=== PATIENT | male | born 1955 | race Caucasian/White ===

== ENCOUNTER 2023-02-03 18:41 | Inpatient (IN) ==
[2023-02-03] MEDS ORDERED: IOPAMIDOL 100 ML BOTTLE IV ONE (18:42)
[2023-02-03] MEDS ORDERED: 0.9 % SODIUM CHLORIDE 1,000 ML IV ONE (19:01)
[2023-02-03 19:16] LABS: POC Calcium, Ionized 1.22 (1.16-1.32); POC Creatinine 0.8 (0.6-1.2); POC Potassium 4.4 (3.3-5.1)
[2023-02-03] MEDS ORDERED: PIPERACILLIN SODIUM/TAZOBACTAM 3.375 GM in DEXTROSE 5% IN WATER 50 ML IV ONE (19:38)
[2023-02-03] MEDS ORDERED: ONDANSETRON 4 MG/2 ML VIAL IV ONE (19:55)
[2023-02-03 20:00] LABS: Basophils # (Auto) 0.02 K/mcL (0.00-0.30); Basophils % (Auto) 0.1 % (0.0-2.0); Eosinophils # (Auto) 0.01 K/mcL (0.00-0.70); Eosinophils % (Auto) 0.1 % (0.0-7.0); Hematocrit 46.1 % (40.1-51.0); Hemoglobin 14.6 g/dL (13.7-17.5); Lymphocytes % (Auto) 11.8 % (15.5-49.0); Mean Cell Volume 85.1 fL (80.0-100.0); Mean Corpuscular HGB Conc 31.7 g/dL (31.0-36.0); Mean Platelet Volume 9.4 fL (8.8-12.5); Monocytes # (Auto) 0.85 K/mcL (0.10-0.90); Neutrophils % (Auto) 82.6 % (38.0-78.0); Platelet Count 360 K/mcL (140-440); RBC 5.42 M/mcL (4.63-6.08); Red Cell Distribution Width 14.9 % (11.5-14.5); WBC 16.9 K/mcL (4.5-11.0)
[2023-02-03] MEDS: HYDROmorphone 0.5 MG/0.5 ML SYRINGE IV PRN ×3 (20:02→23:24)
[2023-02-03 20:12] LABS: ALT/SGPT 31 U/L (<40); AST/SGOT 16 U/L (<40); Alkaline Phosphatase 79 U/L (39-117); Bilirubin,Direct < 0.2 mg/dL (0-0.3); Bilirubin,Total 0.7 mg/dL (0.1-1.0); Globulin 3.4 gm/dL (2.2-3.7)
[2023-02-03] MEDS ORDERED: ACETAMINOPHEN 325 MG TABLET PO PRN (20:19)
[2023-02-03] MEDS: PIPERACILLIN SODIUM/TAZOBACTAM 3.375 GM in DEXTROSE 5% IN WATER 50 ML IV SCH ×2 (20:42→20:45)
[2023-02-03] MEDS: 0.9 % SODIUM CHLORIDE 1,000 ML IV SCH ×2 (20:43→22:08)
[2023-02-03] MEDS ORDERED: ACETAMINOPHEN 1,000 MG/100 ML BAG IV ONE (23:20)
[2023-02-03] MEDS: ACETAMINOPHEN 1,000 MG/100 ML BAG IV SCH (23:23)
[2023-02-03] MEDS ORDERED: LORazepam 1 MG TABLET ONE (23:34)
[2023-02-03] MEDS: LORazepam 1 MG TABLET PO PRN (23:35)
[2023-02-04] MEDS ORDERED: ACETAMINOPHEN 1,000 MG/100 ML BAG IV ONE (04:17)
[2023-02-04] MEDS: ACETAMINOPHEN 1,000 MG/100 ML BAG IV SCH ×4 (04:18→23:52)
[2023-02-04] MEDS: PIPERACILLIN SODIUM/TAZOBACTAM 3.375 GM in DEXTROSE 5% IN WATER 50 ML IV SCH ×3 (05:16→21:56)
[2023-02-04] MEDS: HYDROmorphone 0.5 MG/0.5 ML SYRINGE IV PRN ×4 (05:20→22:05)
[2023-02-04 07:43] LABS: Basophils # (Auto) 0.05 K/mcL (0.00-0.30); Basophils % (Auto) 0.4 % (0.0-2.0); Eosinophils # (Auto) 0.15 K/mcL (0.00-0.70); Eosinophils % (Auto) 1.1 % (0.0-7.0); Hematocrit 38.4 % (40.1-51.0); Hemoglobin 11.9 g/dL (13.7-17.5); Lymphocytes # (Auto) 1.63 K/mcL (1.50-4.80); Lymphocytes % (Auto) 11.8 % (15.5-49.0); Mean Cell Volume 87.1 fL (80.0-100.0); Mean Platelet Volume 10.3 fL (8.8-12.5); Monocytes # (Auto) 0.71 K/mcL (0.10-0.90); Monocytes % (Auto) 5.1 % (1.0-12.0); Neutrophils % (Auto) 81.2 % (38.0-78.0); Platelet Count 256 K/mcL (140-440); RBC 4.41 M/mcL (4.63-6.08); Red Cell Distribution Width 15.3 % (11.5-14.5); WBC 13.8 K/mcL (4.5-11.0)
[2023-02-04] MEDS: LORazepam 1 MG TABLET PO PRN ×3 (08:34→21:57)
[2023-02-04] MEDS: 0.9 % SODIUM CHLORIDE 1,000 ML IV SCH ×3 (10:22→21:54)
[2023-02-04] MEDS: IPRATROPIUM/ALBUTEROL 3 ML AMPUL.NEB NEB SCH ×2 (13:06→18:13)
[2023-02-04] MEDS: KETOROLAC 15 MG/ML VIAL IV SCH ×2 (14:42→17:42)
[2023-02-04] MEDS: methylPREDNISolone SOD SUCC 125 MG/2 ML VIAL IV SCH (21:54)
[2023-02-05] MEDS: IPRATROPIUM/ALBUTEROL 3 ML AMPUL.NEB NEB SCH ×4 (00:11→19:32)
[2023-02-05] MEDS: KETOROLAC 15 MG/ML VIAL IV SCH ×5 (00:27→23:49)
[2023-02-05] MEDS: PIPERACILLIN SODIUM/TAZOBACTAM 3.375 GM in DEXTROSE 5% IN WATER 50 ML IV SCH ×3 (05:18→21:25)
[2023-02-05] MEDS: LORazepam 1 MG TABLET PO PRN ×2 (05:21→19:07)
[2023-02-05] MEDS: ACETAMINOPHEN 1,000 MG/100 ML BAG IV SCH ×4 (05:59→23:48)
[2023-02-05] MEDS: methylPREDNISolone SOD SUCC 125 MG/2 ML VIAL IV SCH ×2 (10:08→21:25)
[2023-02-05] MEDS: 0.9 % SODIUM CHLORIDE 1,000 ML IV SCH ×2 (10:09→15:31)
[2023-02-05] MEDS: HYDROmorphone 0.5 MG/0.5 ML SYRINGE IV PRN ×2 (11:50→21:25)
[2023-02-06] MEDS: IPRATROPIUM/ALBUTEROL 3 ML AMPUL.NEB NEB SCH ×4 (01:20→18:44)
[2023-02-06] MEDS: 0.9 % SODIUM CHLORIDE 1,000 ML IV SCH ×3 (04:00→17:38)
[2023-02-06] MEDS: PIPERACILLIN SODIUM/TAZOBACTAM 3.375 GM in DEXTROSE 5% IN WATER 50 ML IV SCH ×3 (05:09→22:10)
[2023-02-06] MEDS: KETOROLAC 15 MG/ML VIAL IV SCH ×3 (05:09→17:38)
[2023-02-06] MEDS: LORazepam 1 MG TABLET PO PRN ×3 (05:16→22:13)
[2023-02-06] MEDS: ACETAMINOPHEN 1,000 MG/100 ML BAG IV SCH ×4 (06:14→23:08)
[2023-02-06 06:37] LABS: Basophils # (Auto) 0.02 K/mcL (0.00-0.30); Basophils % (Auto) 0.1 % (0.0-2.0); Eosinophils # (Auto) 0 K/mcL (0.00-0.70); Eosinophils % (Auto) 0 % (0.0-7.0); Hematocrit 36.6 % (40.1-51.0); Hemoglobin 11.5 g/dL (13.7-17.5); Lymphocytes # (Auto) 0.44 K/mcL (1.50-4.80); Mean Cell Volume 85.9 fL (80.0-100.0); Mean Corpuscular HGB Conc 31.4 g/dL (31.0-36.0); Mean Platelet Volume 9.8 fL (8.8-12.5); Monocytes # (Auto) 0.54 K/mcL (0.10-0.90); Monocytes % (Auto) 3.7 % (1.0-12.0); Neutrophils % (Auto) 92.5 % (38.0-78.0); Platelet Count 279 K/mcL (140-440); RBC 4.26 M/mcL (4.63-6.08); Red Cell Distribution Width 14.9 % (11.5-14.5); WBC 14.8 K/mcL (4.5-11.0)
[2023-02-06 07:01] LABS: ALT/SGPT 23 U/L (<40); AST/SGOT 12 U/L (<40); Albumin 3.3 gm/dL (3.2-5.2); Albumin/Globulin Ratio 1.1 (1.0-2.3); Alkaline Phosphatase 83 U/L (39-117); Bilirubin,Direct < 0.2 mg/dL (0-0.3); Bilirubin,Total 0.4 mg/dL (0.1-1.0); Blood Urea Nitrogen 15 mg/dL (8-23); Calcium 9.2 mg/dL (8.6-10.4); Carbon Dioxide 25 mmol/L (22-30); Chloride 103 mmol/L (96-108); Glomerular Filtration Rate 96; Glucose 158 mg/dL (70-105); Lactate Dehydrogenase 170 U/L (135-225); Phosphorous 2.5 mg/dL (2.5-4.5); Triglycerides 77 mg/dL (<150); Uric Acid 3.3 mg/dL (2.5-8.0)
[2023-02-06] MEDS: HYDROmorphone 0.5 MG/0.5 ML SYRINGE IV PRN ×4 (07:57→23:06)
[2023-02-06] MEDS: methylPREDNISolone SOD SUCC 125 MG/2 ML VIAL IV SCH ×2 (08:57→22:10)
[2023-02-07] MEDS: IPRATROPIUM/ALBUTEROL 3 ML AMPUL.NEB NEB SCH ×4 (01:15→18:59)
[2023-02-07] MEDS: KETOROLAC 15 MG/ML VIAL IV SCH ×5 (01:21→23:04)
[2023-02-07] MEDS: ACETAMINOPHEN 1,000 MG/100 ML BAG IV SCH ×4 (04:57→23:04)
[2023-02-07] MEDS: LORazepam 1 MG TABLET PO PRN ×2 (05:03→18:04)
[2023-02-07] MEDS: 0.9 % SODIUM CHLORIDE 1,000 ML IV SCH ×3 (05:42→23:05)
[2023-02-07] MEDS: HYDROmorphone 0.5 MG/0.5 ML SYRINGE IV PRN ×5 (05:59→21:58)
[2023-02-07 06:39] LABS: Basophils # (Auto) 0.02 K/mcL (0.00-0.30); Basophils % (Auto) 0.1 % (0.0-2.0); Eosinophils # (Auto) 0 K/mcL (0.00-0.70); Eosinophils % (Auto) 0 % (0.0-7.0); Hematocrit 38.3 % (40.1-51.0); Lymphocytes # (Auto) 0.43 K/mcL (1.50-4.80); Lymphocytes % (Auto) 2.8 % (15.5-49.0); Mean Cell Volume 86.3 fL (80.0-100.0); Mean Corpuscular HGB Conc 31.3 g/dL (31.0-36.0); Mean Platelet Volume 9.8 fL (8.8-12.5); Monocytes # (Auto) 0.57 K/mcL (0.10-0.90); Monocytes % (Auto) 3.8 % (1.0-12.0); Neutrophils % (Auto) 92.3 % (38.0-78.0); Platelet Count 339 K/mcL (140-440); RBC 4.44 M/mcL (4.63-6.08); Red Cell Distribution Width 15.4 % (11.5-14.5); WBC 15.2 K/mcL (4.5-11.0)
[2023-02-07 06:59] LABS: ALT/SGPT 21 U/L (<40); AST/SGOT 12 U/L (<40); Albumin 3.4 gm/dL (3.2-5.2); Albumin/Globulin Ratio 1.1 (1.0-2.3); Alkaline Phosphatase 75 U/L (39-117); Bilirubin,Direct < 0.2 mg/dL (0-0.3); Bilirubin,Total 0.4 mg/dL (0.1-1.0); Blood Urea Nitrogen 16 mg/dL (8-23); Calcium 9.2 mg/dL (8.6-10.4); Carbon Dioxide 26 mmol/L (22-30); Chloride 104 mmol/L (96-108); Glomerular Filtration Rate 91; Glucose 152 mg/dL (70-105); Lactate Dehydrogenase 176 U/L (135-225); Phosphorous 2.9 mg/dL (2.5-4.5); Triglycerides 72 mg/dL (<150); Uric Acid 3.4 mg/dL (2.5-8.0)
[2023-02-07] MEDS: PIPERACILLIN SODIUM/TAZOBACTAM 3.375 GM in DEXTROSE 5% IN WATER 50 ML IV SCH ×3 (07:08→21:58)
[2023-02-07] MEDS ORDERED: IOPAMIDOL 100 ML BOTTLE IV ONE (07:39)
[2023-02-07] MEDS: methylPREDNISolone SOD SUCC 125 MG/2 ML VIAL IV SCH ×2 (08:56→20:28)
[2023-02-07] MEDS: PANTOPRAZOLE 40 MG VIAL IV SCH (17:57)
[2023-02-08] MEDS: IPRATROPIUM/ALBUTEROL 3 ML AMPUL.NEB NEB SCH ×4 (01:00→18:07)
[2023-02-08] MEDS: HYDROmorphone 0.5 MG/0.5 ML SYRINGE IV PRN ×3 (02:46→18:52)
[2023-02-08] MEDS: ACETAMINOPHEN 1,000 MG/100 ML BAG IV SCH ×4 (04:27→23:11)
[2023-02-08] MEDS: KETOROLAC 15 MG/ML VIAL IV SCH ×4 (05:20→23:12)
[2023-02-08] MEDS: PIPERACILLIN SODIUM/TAZOBACTAM 3.375 GM in DEXTROSE 5% IN WATER 50 ML IV SCH ×4 (05:22→21:39)
[2023-02-08 06:38] LABS: Basophils # (Auto) 0.02 K/mcL (0.00-0.30); Basophils % (Auto) 0.2 % (0.0-2.0); Eosinophils # (Auto) 0 K/mcL (0.00-0.70); Eosinophils % (Auto) 0 % (0.0-7.0); Hematocrit 36.5 % (40.1-51.0); Hemoglobin 11.5 g/dL (13.7-17.5); Lymphocytes # (Auto) 0.48 K/mcL (1.50-4.80); Lymphocytes % (Auto) 3.8 % (15.5-49.0); Mean Cell Volume 85.9 fL (80.0-100.0); Mean Corpuscular HGB Conc 31.5 g/dL (31.0-36.0); Mean Platelet Volume 9.6 fL (8.8-12.5); Monocytes # (Auto) 0.69 K/mcL (0.10-0.90); Monocytes % (Auto) 5.5 % (1.0-12.0); Neutrophils % (Auto) 90.1 % (38.0-78.0); Platelet Count 305 K/mcL (140-440); RBC 4.25 M/mcL (4.63-6.08); Red Cell Distribution Width 15.6 % (11.5-14.5); WBC 12.7 K/mcL (4.5-11.0)
[2023-02-08 07:05] LABS: ALT/SGPT 26 U/L (<40); AST/SGOT 15 U/L (<40); Alkaline Phosphatase 71 U/L (39-117); Bilirubin,Direct < 0.2 mg/dL (0-0.3); Bilirubin,Total 0.4 mg/dL (0.1-1.0); Blood Urea Nitrogen 15 mg/dL (8-23); Calcium 9.2 mg/dL (8.6-10.4); Carbon Dioxide 25 mmol/L (22-30); Chloride 105 mmol/L (96-108); Globulin 3.1 gm/dL (2.2-3.7); Glomerular Filtration Rate 96; Glucose 149 mg/dL (70-105); Lactate Dehydrogenase 164 U/L (135-225); Phosphorous 3.3 mg/dL (2.5-4.5); Triglycerides 73 mg/dL (<150)
[2023-02-08] MEDS: PANTOPRAZOLE 40 MG VIAL IV SCH ×2 (07:45→17:50)
[2023-02-08] MEDS: methylPREDNISolone SOD SUCC 125 MG/2 ML VIAL IV SCH ×2 (08:37→20:44)
[2023-02-08] MEDS: LORazepam 1 MG TABLET PO PRN (09:50)
[2023-02-08] MEDS ORDERED: SCOPOLAMINE 1 PATCH PATCH TOPICAL PRN (11:00)
[2023-02-08] MEDS ORDERED: IPRATROPIUM/ALBUTEROL 3 ML AMPUL.NEB NEB PRN ×2 (11:00→15:57)
[2023-02-08] MEDS ORDERED: KETAMINE 50 MG/ML Syringe IV ONE (12:24)
[2023-02-08] MEDS ORDERED: fentaNYL 100 MCG/2 ML VIAL IV ONE (12:24)
[2023-02-08] MEDS ORDERED: PROPOFOL 200 MG/20 ML VIAL IV ONE (12:25)
[2023-02-08] MEDS ORDERED: DEXAMETHASONE 10 MG/ML VIAL ONE (12:25)
[2023-02-08] MEDS ORDERED: ONDANSETRON 4 MG/2 ML VIAL ONE (12:25)
[2023-02-08] MEDS ORDERED: SUGAMMADEX SODIUM 200 MG/2 ML VIAL IV ONE (12:25)
[2023-02-08] MEDS ORDERED: LIDOCAINE 2% PF 5 ML VIAL ONE (12:25)
[2023-02-08] MEDS ORDERED: MAGNESIUM SULFATE 2 GM/50 ML BAG IV ONE (12:25)
[2023-02-08] MEDS ORDERED: ROCURONIUM 10 MG/ML ML IV ONE ×2 (12:25→14:20)
[2023-02-08] MEDS ORDERED: OXYMETAZOLINE 1 NASAL SPRAY BOTTLE NAS ONE (13:09)
[2023-02-08] MEDS ORDERED: HYDROmorphone 1 MG/ML SYRINGE ONE ×2 (13:38→20:43)
[2023-02-08] MEDS ORDERED: METHOCARBAMOL 1,000 MG/10 ML VIAL IV PRN (15:57)
[2023-02-08] MEDS ORDERED: MEPERIDINE 25 MG/ML VIAL IV PRN (15:57)
[2023-02-08] MEDS ORDERED: HYDROmorphone 0.5 MG/0.5 ML SYRINGE IV PRN (15:57)
[2023-02-08] MEDS ORDERED: NALOXONE HCL 0.4 MG/ML VIAL IV PRN (15:57)
[2023-02-08] MEDS ORDERED: diphenhydrAMINE 50 MG/ML VIAL IV PRN (15:57)
[2023-02-08] MEDS ORDERED: PROMETHAZINE 25 MG/ML VIAL IV PRN (15:57)
[2023-02-08] MEDS ORDERED: LACTATED RINGERS 250 ML IV PRN (15:57)
[2023-02-08] MEDS ORDERED: ONDANSETRON 4 MG/2 ML VIAL IV PRN (15:57)
[2023-02-08] MEDS ORDERED: LACTATED RINGERS 1,000 ML IV SCH (16:00)
[2023-02-08] MEDS: fentaNYL 100 MCG/2 ML VIAL IV PRN ×4 (16:37→16:54)
[2023-02-08] MEDS: 0.9 % SODIUM CHLORIDE 1,000 ML IV SCH ×4 (17:36→23:12)
[2023-02-08] MEDS: HYDROmorphone 1 MG/ML SYRINGE IV PRN ×2 (20:45→23:10)
[2023-02-09] MEDS: IPRATROPIUM/ALBUTEROL 3 ML AMPUL.NEB NEB SCH ×4 (01:26→18:39)
[2023-02-09] MEDS: 0.9 % SODIUM CHLORIDE 1,000 ML IV SCH ×5 (01:58→23:29)
[2023-02-09] MEDS: ACETAMINOPHEN 1,000 MG/100 ML BAG IV SCH ×4 (04:09→23:29)
[2023-02-09] MEDS: HYDROmorphone 1 MG/ML SYRINGE IV PRN ×6 (04:16→21:24)
[2023-02-09] MEDS: PIPERACILLIN SODIUM/TAZOBACTAM 3.375 GM in DEXTROSE 5% IN WATER 50 ML IV SCH ×3 (05:11→21:24)
[2023-02-09] MEDS: KETOROLAC 15 MG/ML VIAL IV SCH ×2 (05:16→12:15)
[2023-02-09 07:24] LABS: ALT/SGPT 51 U/L (<40); AST/SGOT 20 U/L (<40); Albumin 2.6 gm/dL (3.2-5.2); Albumin/Globulin Ratio 0.9 (1.0-2.3); Alkaline Phosphatase 109 U/L (39-117); Bilirubin,Direct 0.2 mg/dL (<0.3); Bilirubin,Total 0.5 mg/dL (0.1-1.0); Blood Urea Nitrogen 21 mg/dL (8-23); Calcium 8.2 mg/dL (8.6-10.4); Carbon Dioxide 27 mmol/L (22-30); Chloride 103 mmol/L (96-108); Globulin 2.8 gm/dL (2.2-3.7); Glomerular Filtration Rate 91; Glucose 136 mg/dL (70-105); Lactate Dehydrogenase 199 U/L (135-225); Phosphorous 3.3 mg/dL (2.5-4.5); Triglycerides 80 mg/dL (<150); Uric Acid 3.3 mg/dL (2.5-8.0)
[2023-02-09 07:56] LABS: Basophils # (Auto) 0.02 K/mcL (0.00-0.30); Basophils % (Auto) 0.2 % (0.0-2.0); Eosinophils # (Auto) 0 K/mcL (0.00-0.70); Eosinophils % (Auto) 0 % (0.0-7.0); Hematocrit 35.3 % (40.1-51.0); Lymphocytes # (Auto) 0.64 K/mcL (1.50-4.80); Lymphocytes % (Auto) 5.1 % (15.5-49.0); Mean Cell Volume 85.9 fL (80.0-100.0); Mean Corpuscular HGB Conc 31.2 g/dL (31.0-36.0); Mean Platelet Volume 9.9 fL (8.8-12.5); Monocytes # (Auto) 0.76 K/mcL (0.10-0.90); Platelet Count 317 K/mcL (140-440); RBC 4.11 M/mcL (4.63-6.08); Red Cell Distribution Width 15.9 % (11.5-14.5); WBC 12.6 K/mcL (4.5-11.0)
[2023-02-09] MEDS: PANTOPRAZOLE 40 MG VIAL IV SCH ×2 (08:00→16:23)
[2023-02-09] MEDS: methylPREDNISolone SOD SUCC 125 MG/2 ML VIAL IV SCH ×2 (08:36→21:24)
[2023-02-09] MEDS: LORazepam 2 MG/ML VIAL IV PRN ×3 (09:50→23:29)
[2023-02-09] MEDS: ONDANSETRON 4 MG/2 ML VIAL IV PRN (19:03)
[2023-02-10] MEDS: HYDROmorphone 1 MG/ML SYRINGE IV PRN ×5 (02:09→18:00)
[2023-02-10] MEDS: IPRATROPIUM/ALBUTEROL 3 ML AMPUL.NEB NEB SCH ×4 (02:58→18:52)
[2023-02-10] MEDS: ACETAMINOPHEN 1,000 MG/100 ML BAG IV SCH ×4 (04:36→22:18)
[2023-02-10] MEDS: PIPERACILLIN SODIUM/TAZOBACTAM 3.375 GM in DEXTROSE 5% IN WATER 50 ML IV SCH ×3 (05:46→20:32)
[2023-02-10] MEDS: 0.9 % SODIUM CHLORIDE 1,000 ML IV SCH ×3 (06:47→17:14)
[2023-02-10] MEDS: LORazepam 2 MG/ML VIAL IV PRN ×3 (06:53→20:32)
[2023-02-10] MEDS: PANTOPRAZOLE 40 MG VIAL IV SCH ×2 (06:53→17:14)
[2023-02-10 07:25] LABS: Basophils # (Auto) 0.02 K/mcL (0.00-0.30); Basophils % (Auto) 0.2 % (0.0-2.0); Eosinophils # (Auto) 0 K/mcL (0.00-0.70); Eosinophils % (Auto) 0 % (0.0-7.0); Hematocrit 33.9 % (40.1-51.0); Hemoglobin 10.4 g/dL (13.7-17.5); Lymphocytes # (Auto) 0.69 K/mcL (1.50-4.80); Lymphocytes % (Auto) 5.3 % (15.5-49.0); Mean Cell Volume 86.9 fL (80.0-100.0); Mean Corpuscular HGB Conc 30.7 g/dL (31.0-36.0); Mean Platelet Volume 10.1 fL (8.8-12.5); Monocytes # (Auto) 0.57 K/mcL (0.10-0.90); Monocytes % (Auto) 4.4 % (1.0-12.0); Neutrophils % (Auto) 88.3 % (38.0-78.0); Platelet Count 306 K/mcL (140-440); Red Cell Distribution Width 15.9 % (11.5-14.5)
[2023-02-10] MEDS: methylPREDNISolone SOD SUCC 125 MG/2 ML VIAL IV SCH ×2 (08:22→20:32)
[2023-02-10] MEDS: METOCLOPRAMIDE 10 MG/2 ML VIAL IV SCH ×2 (14:33→17:14)
[2023-02-11] MEDS: IPRATROPIUM/ALBUTEROL 3 ML AMPUL.NEB NEB SCH ×4 (01:02→19:00)
[2023-02-11] MEDS: ACETAMINOPHEN 1,000 MG/100 ML BAG IV SCH ×4 (04:48→23:08)
[2023-02-11] MEDS: 0.9 % SODIUM CHLORIDE 1,000 ML IV SCH ×5 (04:49→21:12)
[2023-02-11] MEDS: HYDROmorphone 1 MG/ML SYRINGE IV PRN ×6 (04:49→23:35)
[2023-02-11] MEDS: METOCLOPRAMIDE 10 MG/2 ML VIAL IV SCH ×5 (05:38→23:35)
[2023-02-11] MEDS: PIPERACILLIN SODIUM/TAZOBACTAM 3.375 GM in DEXTROSE 5% IN WATER 50 ML IV SCH ×3 (05:38→21:51)
[2023-02-11 07:12] LABS: Basophils # (Auto) 0.03 K/mcL (0.00-0.30); Basophils % (Auto) 0.2 % (0.0-2.0); Eosinophils # (Auto) 0 K/mcL (0.00-0.70); Eosinophils % (Auto) 0 % (0.0-7.0); Hematocrit 32.6 % (40.1-51.0); Hemoglobin 10.2 g/dL (13.7-17.5); Lymphocytes # (Auto) 1.22 K/mcL (1.50-4.80); Lymphocytes % (Auto) 8.3 % (15.5-49.0); Mean Corpuscular HGB Conc 31.3 g/dL (31.0-36.0); Mean Platelet Volume 9.9 fL (8.8-12.5); Monocytes # (Auto) 1.02 K/mcL (0.10-0.90); Monocytes % (Auto) 6.9 % (1.0-12.0); Neutrophils % (Auto) 81.9 % (38.0-78.0); Platelet Count 303 K/mcL (140-440); RBC 3.79 M/mcL (4.63-6.08); Red Cell Distribution Width 15.6 % (11.5-14.5); WBC 14.7 K/mcL (4.5-11.0)
[2023-02-11] MEDS: PANTOPRAZOLE 40 MG VIAL IV SCH ×2 (07:20→17:17)
[2023-02-11 07:40] LABS: ALT/SGPT 49 U/L (<40); AST/SGOT 27 U/L (<40); Albumin 2.7 gm/dL (3.2-5.2); Alkaline Phosphatase 68 U/L (39-117); Bilirubin,Direct 0.2 mg/dL (<0.3); Bilirubin,Total 0.5 mg/dL (0.1-1.0); Blood Urea Nitrogen 21 mg/dL (8-23); Calcium 8.6 mg/dL (8.6-10.4); Carbon Dioxide 29 mmol/L (22-30); Chloride 105 mmol/L (96-108); Globulin 2.6 gm/dL (2.2-3.7); Glomerular Filtration Rate 102; Glucose 134 mg/dL (70-105); Lactate Dehydrogenase 194 U/L (135-225); Phosphorous 2.7 mg/dL (2.5-4.5); Triglycerides 102 mg/dL (<150); Uric Acid 3.1 mg/dL (2.5-8.0)
[2023-02-11] MEDS: methylPREDNISolone SOD SUCC 125 MG/2 ML VIAL IV SCH ×2 (08:18→21:09)
[2023-02-11] MEDS: LORazepam 2 MG/ML VIAL IV PRN ×2 (10:31→21:50)
[2023-02-11] MEDS: FUROSEMIDE 20 MG/2 ML VIAL IV SCH ×2 (11:31→13:40)
[2023-02-12] MEDS: IPRATROPIUM/ALBUTEROL 3 ML AMPUL.NEB NEB SCH ×4 (00:56→19:08)
[2023-02-12] MEDS: 0.9 % SODIUM CHLORIDE 1,000 ML IV SCH ×3 (02:43→19:30)
[2023-02-12] MEDS: HYDROmorphone 1 MG/ML SYRINGE IV PRN ×4 (03:50→21:11)
[2023-02-12] MEDS: ACETAMINOPHEN 1,000 MG/100 ML BAG IV SCH ×4 (04:49→23:32)
[2023-02-12] MEDS: METOCLOPRAMIDE 10 MG/2 ML VIAL IV SCH ×4 (05:59→23:32)
[2023-02-12] MEDS: PIPERACILLIN SODIUM/TAZOBACTAM 3.375 GM in DEXTROSE 5% IN WATER 50 ML IV SCH ×3 (05:59→21:13)
[2023-02-12 06:34] LABS: Basophils # (Auto) 0.04 K/mcL (0.00-0.30); Basophils % (Auto) 0.3 % (0.0-2.0); Eosinophils # (Auto) 0 K/mcL (0.00-0.70); Eosinophils % (Auto) 0 % (0.0-7.0); Hematocrit 37.1 % (40.1-51.0); Hemoglobin 11.6 g/dL (13.7-17.5); Lymphocytes # (Auto) 0.85 K/mcL (1.50-4.80); Lymphocytes % (Auto) 5.4 % (15.5-49.0); Mean Cell Volume 84.5 fL (80.0-100.0); Mean Corpuscular HGB Conc 31.3 g/dL (31.0-36.0); Mean Platelet Volume 9.7 fL (8.8-12.5); Monocytes # (Auto) 0.78 K/mcL (0.10-0.90); Neutrophils % (Auto) 86.1 % (38.0-78.0); Platelet Count 338 K/mcL (140-440); RBC 4.39 M/mcL (4.63-6.08); Red Cell Distribution Width 14.8 % (11.5-14.5); WBC 15.7 K/mcL (4.5-11.0)
[2023-02-12 07:03] LABS: ALT/SGPT 143 U/L (<40); AST/SGOT 70 U/L (<40); Alkaline Phosphatase 85 U/L (39-117); Bilirubin,Direct 0.3 mg/dL (<0.3); Bilirubin,Total 0.8 mg/dL (0.1-1.0); Blood Urea Nitrogen 24 mg/dL (8-23); Calcium 8.6 mg/dL (8.6-10.4); Carbon Dioxide 28 mmol/L (22-30); Chloride 97 mmol/L (96-108); Globulin 2.9 gm/dL (2.2-3.7); Glomerular Filtration Rate 96; Glucose 138 mg/dL (70-105); Lactate Dehydrogenase 275 U/L (135-225); Phosphorous 3.3 mg/dL (2.5-4.5); Triglycerides 122 mg/dL (<150)
[2023-02-12] MEDS: PANTOPRAZOLE 40 MG VIAL IV SCH ×2 (08:22→19:18)
[2023-02-12] MEDS: methylPREDNISolone SOD SUCC 125 MG/2 ML VIAL IV SCH ×2 (08:23→21:10)
[2023-02-12] MEDS: LORazepam 2 MG/ML VIAL IV PRN ×2 (08:45→21:10)
[2023-02-12] MEDS: ONDANSETRON 4 MG/2 ML VIAL IV PRN (15:26)
[2023-02-13] MEDS: IPRATROPIUM/ALBUTEROL 3 ML AMPUL.NEB NEB SCH ×4 (01:02→19:00)
[2023-02-13] MEDS: HYDROmorphone 1 MG/ML SYRINGE IV PRN ×4 (01:43→22:04)
[2023-02-13] MEDS: 0.9 % SODIUM CHLORIDE 1,000 ML IV SCH ×2 (04:11→17:12)
[2023-02-13] MEDS: ACETAMINOPHEN 1,000 MG/100 ML BAG IV SCH ×3 (05:09→17:24)
[2023-02-13] MEDS: PIPERACILLIN SODIUM/TAZOBACTAM 3.375 GM in DEXTROSE 5% IN WATER 50 ML IV SCH ×3 (06:06→21:44)
[2023-02-13] MEDS: METOCLOPRAMIDE 10 MG/2 ML VIAL IV SCH ×3 (06:06→17:24)
[2023-02-13 07:00] LABS: Basophils # (Auto) 0.05 K/mcL (0.00-0.30); Basophils % (Auto) 0.3 % (0.0-2.0); Eosinophils # (Auto) 0 K/mcL (0.00-0.70); Eosinophils % (Auto) 0 % (0.0-7.0); Hematocrit 35.2 % (40.1-51.0); Hemoglobin 11.1 g/dL (13.7-17.5); Lymphocytes # (Auto) 1.07 K/mcL (1.50-4.80); Mean Cell Volume 84.8 fL (80.0-100.0); Mean Corpuscular HGB Conc 31.5 g/dL (31.0-36.0); Monocytes % (Auto) 5.6 % (1.0-12.0); Neutrophils % (Auto) 85.7 % (38.0-78.0); Platelet Count 305 K/mcL (140-440); RBC 4.15 M/mcL (4.63-6.08); Red Cell Distribution Width 14.9 % (11.5-14.5)
[2023-02-13 07:28] LABS: ALT/SGPT 109 U/L (<40); AST/SGOT 32 U/L (<40); Albumin 2.8 gm/dL (3.2-5.2); Alkaline Phosphatase 76 U/L (39-117); Bilirubin,Direct 0.2 mg/dL (<0.3); Bilirubin,Total 0.7 mg/dL (0.1-1.0); Blood Urea Nitrogen 18 mg/dL (8-23); Calcium 8.3 mg/dL (8.6-10.4); Carbon Dioxide 32 mmol/L (22-30); Chloride 96 mmol/L (96-108); Globulin 2.9 gm/dL (2.2-3.7); Glomerular Filtration Rate 96; Glucose 124 mg/dL (70-105); Lactate Dehydrogenase 228 U/L (135-225); Phosphorous 2.8 mg/dL (2.5-4.5); Triglycerides 112 mg/dL (<150); Uric Acid 2.8 mg/dL (2.5-8.0)
[2023-02-13] MEDS: PANTOPRAZOLE 40 MG VIAL IV SCH ×2 (07:29→17:24)
[2023-02-13] MEDS: methylPREDNISolone SOD SUCC 125 MG/2 ML VIAL IV SCH ×2 (08:45→21:44)
[2023-02-13] MEDS: LORazepam 2 MG/ML VIAL IV PRN (17:35)
[2023-02-13] MEDS ORDERED: ALPRAZolam 0.5 MG TABLET PO PRN (17:36)
[2023-02-13] MEDS: diphenhydrAMINE 25 MG CAPSULE PO PRN (22:04)
[2023-02-14] MEDS: METOCLOPRAMIDE 10 MG/2 ML VIAL IV SCH ×5 (00:24→23:06)
[2023-02-14] MEDS: ACETAMINOPHEN 1,000 MG/100 ML BAG IV SCH ×5 (00:26→23:06)
[2023-02-14] MEDS: IPRATROPIUM/ALBUTEROL 3 ML AMPUL.NEB NEB SCH ×4 (01:00→19:30)
[2023-02-14] MEDS: HYDROmorphone 1 MG/ML SYRINGE IV PRN ×3 (02:52→23:09)
[2023-02-14] MEDS: 0.9 % SODIUM CHLORIDE 1,000 ML IV SCH ×3 (05:03→17:27)
[2023-02-14] MEDS: PIPERACILLIN SODIUM/TAZOBACTAM 3.375 GM in DEXTROSE 5% IN WATER 50 ML IV SCH ×3 (06:25→22:10)
[2023-02-14 07:31] LABS: ALT/SGPT 83 U/L (<40); AST/SGOT 25 U/L (<40); Albumin 2.3 gm/dL (3.2-5.2); Alkaline Phosphatase 58 U/L (39-117); Basophils # (Auto) 0.03 K/mcL (0.00-0.30); Basophils % (Auto) 0.1 % (0.0-2.0); Bilirubin,Direct < 0.2 mg/dL (0-0.3); Bilirubin,Total 0.5 mg/dL (0.1-1.0); Blood Urea Nitrogen 24 mg/dL (8-23); Calcium 7.8 mg/dL (8.6-10.4); Carbon Dioxide 28 mmol/L (22-30); Chloride 99 mmol/L (96-108); Eosinophils # (Auto) 0 K/mcL (0.00-0.70); Eosinophils % (Auto) 0 % (0.0-7.0); Globulin 2.4 gm/dL (2.2-3.7); Glomerular Filtration Rate 91; Glucose 148 mg/dL (70-105); Hematocrit 28.1 % (40.1-51.0); Hemoglobin 8.7 g/dL (13.7-17.5); Lactate Dehydrogenase 205 U/L (135-225); Lymphocytes # (Auto) 1.06 K/mcL (1.50-4.80); Lymphocytes % (Auto) 4.6 % (15.5-49.0); Mean Cell Volume 87.8 fL (80.0-100.0); Mean Platelet Volume 10.4 fL (8.8-12.5); Monocytes # (Auto) 1.01 K/mcL (0.10-0.90); Monocytes % (Auto) 4.4 % (1.0-12.0); Neutrophils % (Auto) 87.2 % (38.0-78.0); Phosphorous 3.7 mg/dL (2.5-4.5); Platelet Count 268 K/mcL (140-440); Red Cell Distribution Width 15.1 % (11.5-14.5); Triglycerides 135 mg/dL (<150); Uric Acid 3.3 mg/dL (2.5-8.0); WBC 22.8 K/mcL (4.5-11.0)
[2023-02-14] MEDS: PANTOPRAZOLE 40 MG VIAL IV SCH ×2 (08:25→17:27)
[2023-02-14] MEDS: LORazepam 2 MG/ML VIAL IV PRN ×2 (08:25→20:42)
[2023-02-14] MEDS: methylPREDNISolone SOD SUCC 125 MG/2 ML VIAL IV SCH (10:09)
[2023-02-14] MEDS: diphenhydrAMINE 25 MG CAPSULE PO PRN (22:09)
[2023-02-14] MEDS: predniSONE 10 MG TABLET PO SCH (22:10)
[2023-02-15] MEDS: IPRATROPIUM/ALBUTEROL 3 ML AMPUL.NEB NEB SCH ×4 (01:15→18:54)
[2023-02-15] MEDS: ACETAMINOPHEN 1,000 MG/100 ML BAG IV SCH ×4 (05:04→23:18)
[2023-02-15] MEDS: 0.9 % SODIUM CHLORIDE 1,000 ML IV SCH ×2 (05:04→16:58)
[2023-02-15] MEDS: HYDROmorphone 1 MG/ML SYRINGE IV PRN ×3 (05:49→22:09)
[2023-02-15] MEDS: METOCLOPRAMIDE 10 MG/2 ML VIAL IV SCH ×4 (05:49→23:18)
[2023-02-15] MEDS: PIPERACILLIN SODIUM/TAZOBACTAM 3.375 GM in DEXTROSE 5% IN WATER 50 ML IV SCH ×3 (05:50→22:08)
[2023-02-15 06:24] LABS: Basophils # (Auto) 0.02 K/mcL (0.00-0.30); Basophils % (Auto) 0.1 % (0.0-2.0); Eosinophils # (Auto) 0.01 K/mcL (0.00-0.70); Eosinophils % (Auto) 0.1 % (0.0-7.0); Hematocrit 25.6 % (40.1-51.0); Lymphocytes # (Auto) 1.47 K/mcL (1.50-4.80); Lymphocytes % (Auto) 7.4 % (15.5-49.0); Mean Cell Volume 86.5 fL (80.0-100.0); Mean Corpuscular HGB Conc 31.3 g/dL (31.0-36.0); Mean Platelet Volume 10.2 fL (8.8-12.5); Monocytes # (Auto) 1.22 K/mcL (0.10-0.90); Monocytes % (Auto) 6.1 % (1.0-12.0); Neutrophils % (Auto) 83.5 % (38.0-78.0); Platelet Count 249 K/mcL (140-440); RBC 2.96 M/mcL (4.63-6.08); Red Cell Distribution Width 15.1 % (11.5-14.5); WBC 19.9 K/mcL (4.5-11.0)
[2023-02-15] MEDS: PANTOPRAZOLE 40 MG VIAL IV SCH ×2 (07:43→16:58)
[2023-02-15] MEDS: predniSONE 10 MG TABLET PO SCH ×2 (08:51→20:35)
[2023-02-15] MEDS: LORazepam 2 MG/ML VIAL IV PRN ×2 (11:22→20:45)
[2023-02-15] MEDS ORDERED: 0.9 % SODIUM CHLORIDE 250 ML IV SCH (16:30)
[2023-02-15] MEDS: diphenhydrAMINE 25 MG CAPSULE PO PRN (22:08)
[2023-02-16] MEDS: IPRATROPIUM/ALBUTEROL 3 ML AMPUL.NEB NEB SCH ×4 (01:17→19:33)
[2023-02-16] MEDS: ACETAMINOPHEN 1,000 MG/100 ML BAG IV SCH ×4 (03:55→22:42)
[2023-02-16] MEDS: 0.9 % SODIUM CHLORIDE 1,000 ML IV SCH ×3 (03:56→20:05)
[2023-02-16] MEDS: METOCLOPRAMIDE 10 MG/2 ML VIAL IV SCH ×4 (05:44→23:30)
[2023-02-16] MEDS: PIPERACILLIN SODIUM/TAZOBACTAM 3.375 GM in DEXTROSE 5% IN WATER 50 ML IV SCH ×3 (05:45→20:59)
[2023-02-16] MEDS: HYDROmorphone 1 MG/ML SYRINGE IV PRN ×3 (05:50→20:58)
[2023-02-16 06:35] LABS: Basophils # (Auto) 0.02 K/mcL (0.00-0.30); Basophils % (Auto) 0.1 % (0.0-2.0); Eosinophils # (Auto) 0.07 K/mcL (0.00-0.70); Eosinophils % (Auto) 0.4 % (0.0-7.0); Hemoglobin 7.8 g/dL (13.7-17.5); Lymphocytes # (Auto) 1.37 K/mcL (1.50-4.80); Mean Cell Volume 87.1 fL (80.0-100.0); Mean Corpuscular HGB Conc 31.2 g/dL (31.0-36.0); Mean Platelet Volume 10.1 fL (8.8-12.5); Monocytes # (Auto) 1.12 K/mcL (0.10-0.90); Monocytes % (Auto) 6.6 % (1.0-12.0); Neutrophils % (Auto) 80.9 % (38.0-78.0); Platelet Count 248 K/mcL (140-440); RBC 2.87 M/mcL (4.63-6.08); Red Cell Distribution Width 15.3 % (11.5-14.5)
[2023-02-16] MEDS ORDERED: 0.9 % SODIUM CHLORIDE 250 ML IV SCH (07:00)
[2023-02-16] MEDS: PANTOPRAZOLE 40 MG VIAL IV SCH ×2 (07:07→16:19)
[2023-02-16 07:14] LABS: ALT/SGPT 60 U/L (<40); AST/SGOT 18 U/L (<40); Albumin 2.5 gm/dL (3.2-5.2); Alkaline Phosphatase 55 U/L (39-117); Bilirubin,Direct < 0.2 mg/dL (0-0.3); Bilirubin,Total 0.5 mg/dL (0.1-1.0); Blood Urea Nitrogen 14 mg/dL (8-23); Calcium 8.1 mg/dL (8.6-10.4); Carbon Dioxide 30 mmol/L (22-30); Chloride 103 mmol/L (96-108); Globulin 2.5 gm/dL (2.2-3.7); Glomerular Filtration Rate 102; Glucose 113 mg/dL (70-105); Lactate Dehydrogenase 168 U/L (135-225); Phosphorous 2.5 mg/dL (2.5-4.5); Triglycerides 120 mg/dL (<150); Uric Acid 2.7 mg/dL (2.5-8.0)
[2023-02-16] MEDS: predniSONE 10 MG TABLET PO SCH ×2 (10:39→20:59)
[2023-02-16] MEDS: LORazepam 2 MG/ML VIAL IV PRN ×2 (10:40→17:23)
[2023-02-16] MEDS: TRANEXAMIC ACID 1,000 MG/10 ML VIAL IV SCH ×2 (14:05→17:03)
[2023-02-16] MEDS: diphenhydrAMINE 25 MG CAPSULE PO PRN (20:59)
[2023-02-17] MEDS: HYDROmorphone 1 MG/ML SYRINGE IV PRN ×3 (00:23→13:39)
[2023-02-17] MEDS: IPRATROPIUM/ALBUTEROL 3 ML AMPUL.NEB NEB SCH ×4 (00:25→19:18)
[2023-02-17] MEDS: LORazepam 2 MG/ML VIAL IV PRN (04:53)
[2023-02-17] MEDS: ACETAMINOPHEN 1,000 MG/100 ML BAG IV SCH ×4 (04:55→22:42)
[2023-02-17] MEDS: PIPERACILLIN SODIUM/TAZOBACTAM 3.375 GM in DEXTROSE 5% IN WATER 50 ML IV SCH ×3 (06:10→21:38)
[2023-02-17] MEDS: METOCLOPRAMIDE 10 MG/2 ML VIAL IV SCH ×4 (06:15→23:23)
[2023-02-17 06:20] LABS: Basophils # (Auto) 0.03 K/mcL (0.00-0.30); Basophils % (Auto) 0.2 % (0.0-2.0); Eosinophils # (Auto) 0.08 K/mcL (0.00-0.70); Eosinophils % (Auto) 0.5 % (0.0-7.0); Hematocrit 30.7 % (40.1-51.0); Hemoglobin 9.7 g/dL (13.7-17.5); Lymphocytes # (Auto) 1.16 K/mcL (1.50-4.80); Lymphocytes % (Auto) 6.9 % (15.5-49.0); Mean Cell Volume 88.7 fL (80.0-100.0); Mean Corpuscular HGB Conc 31.6 g/dL (31.0-36.0); Monocytes # (Auto) 0.94 K/mcL (0.10-0.90); Monocytes % (Auto) 5.6 % (1.0-12.0); Neutrophils % (Auto) 84.3 % (38.0-78.0); Platelet Count 243 K/mcL (140-440); RBC 3.46 M/mcL (4.63-6.08); Red Cell Distribution Width 15.9 % (11.5-14.5); WBC 16.9 K/mcL (4.5-11.0)
[2023-02-17 06:43] LABS: ALT/SGPT 61 U/L (<40); AST/SGOT 24 U/L (<40); Albumin 2.6 gm/dL (3.2-5.2); Alkaline Phosphatase 60 U/L (39-117); Bilirubin,Direct 0.2 mg/dL (<0.3); Bilirubin,Total 0.6 mg/dL (0.1-1.0); Blood Urea Nitrogen 10 mg/dL (8-23); Calcium 8.2 mg/dL (8.6-10.4); Carbon Dioxide 27 mmol/L (22-30); Chloride 101 mmol/L (96-108); Globulin 2.7 gm/dL (2.2-3.7); Glomerular Filtration Rate 102; Glucose 109 mg/dL (70-105); Lactate Dehydrogenase 264 U/L (135-225); Phosphorous 2.3 mg/dL (2.5-4.5); Triglycerides 99 mg/dL (<150); Uric Acid 2.1 mg/dL (2.5-8.0)
[2023-02-17] MEDS: 0.9 % SODIUM CHLORIDE 1,000 ML IV SCH ×4 (07:36→23:24)
[2023-02-17] MEDS: PANTOPRAZOLE 40 MG VIAL IV SCH ×2 (08:10→16:45)
[2023-02-17] MEDS: predniSONE 10 MG TABLET PO SCH ×2 (08:10→21:10)
[2023-02-17] MEDS: oxyCODONE IR 5 MG TABLET PO PRN (17:48)
[2023-02-17] MEDS: diphenhydrAMINE 25 MG CAPSULE PO PRN (21:10)
[2023-02-17] MEDS: LORazepam 0.5 MG TABLET PO PRN (21:10)
[2023-02-18] MEDS: IPRATROPIUM/ALBUTEROL 3 ML AMPUL.NEB NEB SCH ×4 (00:12→20:01)
[2023-02-18] MEDS: 0.9 % SODIUM CHLORIDE 1,000 ML IV SCH ×3 (03:55→22:49)
[2023-02-18] MEDS: ACETAMINOPHEN 1,000 MG/100 ML BAG IV SCH ×4 (04:45→23:42)
[2023-02-18] MEDS: METOCLOPRAMIDE 10 MG/2 ML VIAL IV SCH ×3 (05:57→17:54)
[2023-02-18] MEDS: PIPERACILLIN SODIUM/TAZOBACTAM 3.375 GM in DEXTROSE 5% IN WATER 50 ML IV SCH ×3 (05:57→22:48)
[2023-02-18] MEDS: oxyCODONE IR 5 MG TABLET PO PRN ×5 (05:58→20:33)
[2023-02-18 07:12] LABS: Basophils # (Auto) 0.04 K/mcL (0.00-0.30); Basophils % (Auto) 0.3 % (0.0-2.0); Eosinophils # (Auto) 0.08 K/mcL (0.00-0.70); Eosinophils % (Auto) 0.5 % (0.0-7.0); Hematocrit 31.7 % (40.1-51.0); Hemoglobin 9.7 g/dL (13.7-17.5); Lymphocytes # (Auto) 1.02 K/mcL (1.50-4.80); Lymphocytes % (Auto) 6.6 % (15.5-49.0); Mean Corpuscular HGB Conc 30.6 g/dL (31.0-36.0); Mean Platelet Volume 9.9 fL (8.8-12.5); Monocytes # (Auto) 0.84 K/mcL (0.10-0.90); Monocytes % (Auto) 5.4 % (1.0-12.0); Neutrophils % (Auto) 84.9 % (38.0-78.0); Platelet Count 315 K/mcL (140-440); RBC 3.56 M/mcL (4.63-6.08); Red Cell Distribution Width 16.3 % (11.5-14.5); WBC 15.5 K/mcL (4.5-11.0)
[2023-02-18 07:37] LABS: ALT/SGPT 56 U/L (<40); AST/SGOT 18 U/L (<40); Albumin 2.6 gm/dL (3.2-5.2); Albumin/Globulin Ratio 0.9 (1.0-2.3); Alkaline Phosphatase 63 U/L (39-117); Bilirubin,Direct < 0.2 mg/dL (0-0.3); Bilirubin,Total 0.6 mg/dL (0.1-1.0); Blood Urea Nitrogen 8 mg/dL (8-23); Calcium 8.2 mg/dL (8.6-10.4); Carbon Dioxide 31 mmol/L (22-30); Chloride 100 mmol/L (96-108); Globulin 2.9 gm/dL (2.2-3.7); Glomerular Filtration Rate 102; Glucose 107 mg/dL (70-105); Lactate Dehydrogenase 223 U/L (135-225); Phosphorous 2.4 mg/dL (2.5-4.5); Triglycerides 97 mg/dL (<150); Uric Acid 2.2 mg/dL (2.5-8.0)
[2023-02-18] MEDS: predniSONE 10 MG TABLET PO SCH ×2 (08:28→20:33)
[2023-02-18] MEDS: PANTOPRAZOLE 40 MG VIAL IV SCH ×2 (08:28→16:41)
[2023-02-18] MEDS: LORazepam 0.5 MG TABLET PO PRN ×2 (11:02→19:18)
[2023-02-18] MEDS: MAGNESIUM HYDROXIDE 30 ML ORAL.SUSP PO SCH ×2 (15:47→20:33)
[2023-02-19] MEDS: METOCLOPRAMIDE 10 MG/2 ML VIAL IV SCH ×5 (00:37→23:22)
[2023-02-19] MEDS: IPRATROPIUM/ALBUTEROL 3 ML AMPUL.NEB NEB SCH ×4 (00:57→18:42)
[2023-02-19] MEDS: ACETAMINOPHEN 1,000 MG/100 ML BAG IV SCH ×4 (05:36→23:22)
[2023-02-19] MEDS: PIPERACILLIN SODIUM/TAZOBACTAM 3.375 GM in DEXTROSE 5% IN WATER 100 ML IV SCH ×3 (05:36→21:31)
[2023-02-19] MEDS: 0.9 % SODIUM CHLORIDE 1,000 ML IV SCH ×4 (05:36→21:31)
[2023-02-19] MEDS: PANTOPRAZOLE 40 MG VIAL IV SCH ×2 (08:20→17:18)
[2023-02-19] MEDS: LORazepam 0.5 MG TABLET PO PRN ×3 (08:21→23:28)
[2023-02-19] MEDS: predniSONE 10 MG TABLET PO SCH ×2 (08:21→21:31)
[2023-02-19] MEDS: oxyCODONE IR 5 MG TABLET PO PRN ×3 (11:40→23:21)
[2023-02-19] MEDS ORDERED: MAGNESIUM HYDROXIDE 30 ML ORAL.SUSP PO SCH (15:15)
[2023-02-19] MEDS: PYRIDOSTIGMINE BROMIDE 10 MG/2 ML AMPUL IV SCH ×2 (18:28→23:22)
[2023-02-20] MEDS: IPRATROPIUM/ALBUTEROL 3 ML AMPUL.NEB NEB SCH ×4 (00:58→19:45)
[2023-02-20] MEDS: 0.9 % SODIUM CHLORIDE 1,000 ML IV SCH ×3 (03:07→20:21)
[2023-02-20] MEDS: PIPERACILLIN SODIUM/TAZOBACTAM 3.375 GM in DEXTROSE 5% IN WATER 100 ML IV SCH ×3 (05:06→22:37)
[2023-02-20] MEDS: METOCLOPRAMIDE 10 MG/2 ML VIAL IV SCH ×4 (05:06→18:58)
[2023-02-20] MEDS: ACETAMINOPHEN 1,000 MG/100 ML BAG IV SCH ×5 (05:07→22:38)
[2023-02-20] MEDS: oxyCODONE IR 5 MG TABLET PO PRN ×4 (05:08→22:06)
[2023-02-20] MEDS: PYRIDOSTIGMINE BROMIDE 10 MG/2 ML AMPUL IV SCH ×4 (05:08→18:59)
[2023-02-20] MEDS: LORazepam 0.5 MG TABLET PO PRN ×3 (05:37→17:56)
[2023-02-20] MEDS: PANTOPRAZOLE 40 MG VIAL IV SCH ×2 (07:29→17:12)
[2023-02-20 07:49] LABS: Basophils # (Auto) 0.02 K/mcL (0.00-0.30); Basophils % (Auto) 0.2 % (0.0-2.0); Eosinophils # (Auto) 0.06 K/mcL (0.00-0.70); Eosinophils % (Auto) 0.5 % (0.0-7.0); Hematocrit 31.5 % (40.1-51.0); Hemoglobin 9.9 g/dL (13.7-17.5); Lymphocytes # (Auto) 1.14 K/mcL (1.50-4.80); Lymphocytes % (Auto) 8.8 % (15.5-49.0); Mean Cell Volume 89.7 fL (80.0-100.0); Mean Corpuscular HGB Conc 31.4 g/dL (31.0-36.0); Mean Platelet Volume 9.5 fL (8.8-12.5); Monocytes # (Auto) 0.86 K/mcL (0.10-0.90); Monocytes % (Auto) 6.7 % (1.0-12.0); Neutrophils % (Auto) 82.7 % (38.0-78.0); Platelet Count 366 K/mcL (140-440); RBC 3.51 M/mcL (4.63-6.08); WBC 12.9 K/mcL (4.5-11.0)
[2023-02-20 08:14] LABS: ALT/SGPT 41 U/L (<40); AST/SGOT 15 U/L (<40); Albumin/Globulin Ratio 1.1 (1.0-2.3); Alkaline Phosphatase 66 U/L (39-117); Bilirubin,Direct < 0.2 mg/dL (0-0.3); Bilirubin,Total 0.6 mg/dL (0.1-1.0); Blood Urea Nitrogen 8 mg/dL (8-23); Calcium 8.5 mg/dL (8.6-10.4); Carbon Dioxide 28 mmol/L (22-30); Chloride 99 mmol/L (96-108); Globulin 2.7 gm/dL (2.2-3.7); Glomerular Filtration Rate 102; Glucose 95 mg/dL (70-105); Lactate Dehydrogenase 274 U/L (135-225); Phosphorous 2.7 mg/dL (2.5-4.5); Triglycerides 101 mg/dL (<150); Uric Acid 2.1 mg/dL (2.5-8.0)
[2023-02-20] MEDS: predniSONE 10 MG TABLET PO SCH ×2 (08:27→20:20)
[2023-02-21] MEDS: METOCLOPRAMIDE 10 MG/2 ML VIAL IV SCH ×4 (00:13→17:45)
[2023-02-21] MEDS: LORazepam 0.5 MG TABLET PO PRN ×4 (00:13→17:46)
[2023-02-21] MEDS: PYRIDOSTIGMINE BROMIDE 10 MG/2 ML AMPUL IV SCH ×4 (00:14→17:45)
[2023-02-21] MEDS: diphenhydrAMINE 25 MG CAPSULE PO PRN (00:22)
[2023-02-21] MEDS: IPRATROPIUM/ALBUTEROL 3 ML AMPUL.NEB NEB SCH ×4 (01:00→19:50)
[2023-02-21] MEDS: 0.9 % SODIUM CHLORIDE 1,000 ML IV SCH ×3 (01:44→17:45)
[2023-02-21] MEDS: ACETAMINOPHEN 1,000 MG/100 ML BAG IV SCH ×4 (04:54→21:32)
[2023-02-21] MEDS: oxyCODONE IR 5 MG TABLET PO PRN ×3 (05:42→17:45)
[2023-02-21] MEDS: PIPERACILLIN SODIUM/TAZOBACTAM 3.375 GM in DEXTROSE 5% IN WATER 100 ML IV SCH ×3 (05:43→21:33)
[2023-02-21 06:48] LABS: Basophils # (Auto) 0.01 K/mcL (0.00-0.30); Basophils % (Auto) 0.1 % (0.0-2.0); Eosinophils # (Auto) 0.06 K/mcL (0.00-0.70); Eosinophils % (Auto) 0.6 % (0.0-7.0); Hematocrit 29.2 % (40.1-51.0); Hemoglobin 9.1 g/dL (13.7-17.5); Lymphocytes # (Auto) 0.86 K/mcL (1.50-4.80); Mean Cell Volume 89.3 fL (80.0-100.0); Mean Corpuscular HGB Conc 31.2 g/dL (31.0-36.0); Mean Platelet Volume 9.3 fL (8.8-12.5); Monocytes # (Auto) 0.76 K/mcL (0.10-0.90); Neutrophils % (Auto) 81.4 % (38.0-78.0); Platelet Count 327 K/mcL (140-440); RBC 3.27 M/mcL (4.63-6.08); Red Cell Distribution Width 16.9 % (11.5-14.5); WBC 9.5 K/mcL (4.5-11.0)
[2023-02-21 07:28] LABS: ALT/SGPT 33 U/L (<40); AST/SGOT 14 U/L (<40); Albumin 2.7 gm/dL (3.2-5.2); Alkaline Phosphatase 58 U/L (39-117); Bilirubin,Direct < 0.2 mg/dL (0-0.3); Bilirubin,Total 0.6 mg/dL (0.1-1.0); Blood Urea Nitrogen 7 mg/dL (8-23); Calcium 8.8 mg/dL (8.6-10.4); Carbon Dioxide 29 mmol/L (22-30); Chloride 104 mmol/L (96-108); Globulin 2.7 gm/dL (2.2-3.7); Glomerular Filtration Rate 102; Glucose 110 mg/dL (70-105); Lactate Dehydrogenase 195 U/L (135-225); Phosphorous 2.9 mg/dL (2.5-4.5); Triglycerides 92 mg/dL (<150); Uric Acid 2.2 mg/dL (2.5-8.0)
[2023-02-21] MEDS: PANTOPRAZOLE 40 MG VIAL IV SCH ×2 (07:40→16:36)
[2023-02-21] MEDS: predniSONE 10 MG TABLET PO SCH ×2 (09:06→21:33)
[2023-02-21] MEDS ORDERED: DIATRIZOATE MEGLU/DIATRIZO SOD 120 ML BOTTLE PO ONE (09:59)
[2023-02-22] MEDS: oxyCODONE IR 5 MG TABLET PO PRN ×3 (00:01→11:58)
[2023-02-22] MEDS: METOCLOPRAMIDE 10 MG/2 ML VIAL IV SCH ×3 (00:02→11:58)
[2023-02-22] MEDS: LORazepam 0.5 MG TABLET PO PRN ×3 (00:02→11:58)
[2023-02-22] MEDS: PYRIDOSTIGMINE BROMIDE 10 MG/2 ML AMPUL IV SCH ×3 (00:02→11:58)
[2023-02-22] MEDS: IPRATROPIUM/ALBUTEROL 3 ML AMPUL.NEB NEB SCH ×2 (00:24→06:58)
[2023-02-22] MEDS: 0.9 % SODIUM CHLORIDE 1,000 ML IV SCH ×2 (00:34→11:02)
[2023-02-22] MEDS: PIPERACILLIN SODIUM/TAZOBACTAM 3.375 GM in DEXTROSE 5% IN WATER 100 ML IV SCH (05:45)
[2023-02-22] MEDS: ACETAMINOPHEN 1,000 MG/100 ML BAG IV SCH ×2 (05:45→11:58)
[2023-02-22 06:59] LABS: Basophils # (Auto) 0.01 K/mcL (0.00-0.30); Basophils % (Auto) 0.1 % (0.0-2.0); Eosinophils # (Auto) 0.03 K/mcL (0.00-0.70); Eosinophils % (Auto) 0.3 % (0.0-7.0); Hematocrit 31.3 % (40.1-51.0); Hemoglobin 9.8 g/dL (13.7-17.5); Lymphocytes # (Auto) 0.83 K/mcL (1.50-4.80); Lymphocytes % (Auto) 8.7 % (15.5-49.0); Mean Cell Volume 89.2 fL (80.0-100.0); Mean Corpuscular HGB Conc 31.3 g/dL (31.0-36.0); Mean Platelet Volume 9.1 fL (8.8-12.5); Monocytes # (Auto) 0.63 K/mcL (0.10-0.90); Monocytes % (Auto) 6.6 % (1.0-12.0); Neutrophils % (Auto) 83.6 % (38.0-78.0); Platelet Count 352 K/mcL (140-440); RBC 3.51 M/mcL (4.63-6.08); Red Cell Distribution Width 17.2 % (11.5-14.5); WBC 9.6 K/mcL (4.5-11.0)
[2023-02-22] MEDS: PANTOPRAZOLE 40 MG VIAL IV SCH (07:03)
[2023-02-22 07:57] LABS: ALT/SGPT 29 U/L (<40); AST/SGOT 12 U/L (<40); Albumin/Globulin Ratio 1.1 (1.0-2.3); Alkaline Phosphatase 61 U/L (39-117); Bilirubin,Direct < 0.2 mg/dL (0-0.3); Bilirubin,Total 0.6 mg/dL (0.1-1.0); Blood Urea Nitrogen 8 mg/dL (8-23); Calcium 8.6 mg/dL (8.6-10.4); Carbon Dioxide 27 mmol/L (22-30); Chloride 102 mmol/L (96-108); Globulin 2.7 gm/dL (2.2-3.7); Glomerular Filtration Rate 102; Glucose 110 mg/dL (70-105); Lactate Dehydrogenase 243 U/L (135-225); Phosphorous 2.7 mg/dL (2.5-4.5); Triglycerides 96 mg/dL (<150)
[2023-02-22] MEDS: predniSONE 10 MG TABLET PO SCH (08:31)
== END 2023-02-22 13:14 | disposition home or self-care (01) | DRG 329 ==
LOC: ED 18:41 → MEDSUR 18:41
PROVIDERS: ADMIT Family Medicine Adult Medicine; ATTEND Family Medicine Adult Medicine